=== PATIENT | female | born 1990 | race Caucasian/White ===

== ENCOUNTER 2019-04-27 07:23 | Emergency (ER) | payer OTHER ==
--- NOTE | 2019-04-27 07:23 | NUR ---
PT BIB CARE TO ER BED 4
[2019-04-27] MEDS ORDERED: MORPHINE SULFATE 4 MG/ML SYR ONE (09:51)
[2019-04-27] MEDS ORDERED: KETOROLAC 60 MG/2 ML VIAL IM ONE (09:51)
--- NOTE | 2019-04-27 10:59 | NUR ---
SEE DOWNTIME CHARTING
--- NOTE | 2019-04-27 11:15 | NUR ---
PT RESTING IN BED WITH FAMILY MEMBER AT BEDSIDE. ALL NEEDS MET AT THIS TIME.
--- NOTE | 2019-04-27 11:35 | NUR ---
DR CARNEY AT BEDSIDE
[2019-04-27 11:58] VITALS: BP 132/72
== END 2019-04-27 11:58 | disposition home or self-care (01) ==
LOC: MED 07:23
DX: S16.1XXA Strain of muscle, fascia and tendon at neck level, initial encounter (principal); S20.211A Contusion of right front wall of thorax, initial encounter; S60.221A Contusion of right hand, initial encounter; S80.02XA Contusion of left knee, initial encounter; J45.909 Unspecified asthma, uncomplicated; Z87.81 Personal history of (healed) traumatic fracture; V49.49XA Driver injured in collision with other motor vehicles in traffic accident, initial encounter; Y93.89 Activity, other specified; Y92.89 Other specified places as the place of occurrence of the external cause; Y99.8 Other external cause status
CPT/HCPCS: 71046; 72040; 72100; 73130; 73590; 99284; J1885; J2270